=== PATIENT | female | born 1950 | race Caucasian/White ===

== ENCOUNTER 2017-04-14 10:42 | Emergency (ER) | payer MEDICARE ==
[~2017-04-14] VITALS: Ht 162.6 cm; Wt 66.0 kg
[2017-04-14] MEDS ORDERED: SODIUM CHLORIDE FLUSH 10ML SYR IVF ONE (11:00)
[2017-04-14] MEDS ORDERED: SODIUM CHLORIDE 0.9% 1,000ML IVBOLUS ONE (11:00)
[2017-04-14] MEDS ORDERED: CALCIUM (11:23)
[2017-04-14] MEDS ORDERED: VITA1CAP PO (11:23)
[2017-04-14] MEDS ORDERED: CHOL10002 PO (11:23)
[2017-04-14] MEDS ORDERED: CLON0.5T20 PO (11:23)
[2017-04-14] MEDS ORDERED: RALO60TA PO (11:23)
[2017-04-14] MEDS ORDERED: SERT25TA3 PO (11:23)
[2017-04-14] MEDS ORDERED: SUMA25TA3 PO (11:23)
[2017-04-14] MEDS ORDERED: FIORICET (11:23)
[2017-04-14] MEDS ORDERED: MAGN400T36 PO (11:23)
[2017-04-14 11:31] LABS: BASOPHILS # (AUTO) 0.03 x10^3/uL (0-0.1); BASOPHILS % (AUTO) 1 % (0-1); EOSINOPHILS # (AUTO) 0.05 x10^3/uL (0-0.4); EOSINOPHILS % (AUTO) 1 % (1-7); LYMPHOCYTES # (AUTO) 1.33 x10^3/uL (1-3.4); LYMPHOCYTES % (AUTO) 21 % (22-44); MD NO; MEAN CORPUSCULAR HEMOGLOBIN 31.7 pg (27.0-34.8); MEAN CORPUSCULAR HGB CONC 32.9 g/dL (32.4-35.8); MEAN CORPUSCULAR VOLUME 96.2 fL (80-100); MEAN PLATELET VOLUME 7.9 fL (7.4-10.4); MONOCYTES # (AUTO) 0.35 x10^3/uL (0.2-0.8); MONOCYTES % (AUTO) 6 % (2-9); NEUTROPHILS # (AUTO) 4.56 x10^3/uL (1.8-6.8); NEUTROPHILS % (AUTO) 72 % (42-75); PLATELET COUNT 239 x10^3/uL (130-400); RED BLOOD COUNT 4.27 x10^6/uL (3.82-5.3); RED CELL DISTRIBUTION WIDTH 13.8 % (9.6-15.2)
[2017-04-14 11:43] LABS: ALBUMIN 3.9 g/dL (3.4-5.0); ANION GAP 4 mmol/L (5-15); CALCIUM 8.8 mg/dL (8.5-10.1); CHLORIDE 108 mmol/L (98-107)
[2017-04-14 11:48] LABS: TROPONIN I < 0.015 ng/mL (0.000-0.045)
[2017-04-14 14:06] VITALS: BP 133/75
== END 2017-04-14 14:09 | disposition home or self-care (01) ==
LOC: ED 13:45
DX: R55 Syncope and collapse (principal); R53.1 Weakness
CPT/HCPCS: 36415; 70450; 71045; 80048; 82040; 84484; 85025; 93005; 96360; 96361; 99285; J7030

== ENCOUNTER → 2018-04-27 | Outpatient (CLI) | payer MEDICARE ==
[~2018-04-27] MED LIST: CALCIUM; CHOL10002 PO; CLON0.5T20 PO; FIORICET; MAGN400T36 PO; RALO60TA PO; SERT25TA3 PO; SUMA25TA3 PO; VITA1CAP PO
== END | disposition home or self-care (01) ==
LOC: CARD 12:16
PROVIDERS: ATTEND Psychiatry & Neurology Neurology
DX: R55 Syncope and collapse (principal)
CPT/HCPCS: 95819